=== PATIENT | male | born 1945 | race Caucasian/White ===

== ENCOUNTER → 2019-10-22 07:54 | Outpatient (CLI) | payer MEDICARE, OTHER, SELFPAY ==
[2016-10-08 12:51] VITALS: BMI 28.3
[2019-10-22 08:50] LABS: Absolute Lymphocyte Count 1.76 X10^3/uL (0.83-4.51); Absolute Neutrophil Count 6.1 X10^3/uL (2.0-7.7); Basophil# 0.03 X10^3/uL; Basophil% 0.3 % (0-1); Eosinophil# 0.12 X10^3/uL; Eosinophils% 1.4 % (0-5); Hematocrit 42.1 % (40-54); Hemoglobin 13.5 g/dL (13.0-16.5); Lymphocyte # 1.76 X10^3/ul (4.0); Lymphocyte % 19.8 % (19-41); Mean Corp Hgb Conc 32.1 g/dL (32-36); Mean Corpuscular Hgb 31.4 pg (27.0-32.0); Mean Corpuscular Volume 97.9 fL (80-94); Mean Platelet Vol. 9.2 fl (6.2-12.0); Monocyte# 0.79 X10^3/uL; Monocyte% 8.9 % (0-10); NRBC Flagged by Analyzer 0 % (0-5); Neutrophil # 6.14 X10^3/uL (2.7-7.7); Neutrophil % 69.1 % (47-70); Platelet Count 305 K/mm3 (150-450); RBC Distribution Width CV 12.3 % (11.6-14.6); RBC Distribution Width SD 44.1 fl (35.1-43.9); White Blood Count 8.9 K/mm3 (4.4-11.0)
[2019-10-22 09:00] LABS: Color, Urine Yellow (Yellow); Glucose, Dipstick Normal (Normal); Ketone-Dipstick Negative (Negative); Leukocyte Esterase-Dipstick Negative /ul (Negative); Nitrite-Dipstick Negative (Negative); Occult Blood-Urine Negative /ul (Negative); Protein-Dipstick Negative (Negative); Specific Gravity, Urine 1.015 (1.002-1.030); Urine Bilirubin Dipstick Negative (Negative); Urine Clarity Sl. Cloudy (Clear); Urine Urobilinogen Normal (Normal)
[2019-10-22 09:38] LABS: ALB/GLOB Ratio 0.9 RATIO (0.9-2.4); AST(SGOT) 27 U/L (15-37); Alanine Aminotransfer ALT/SGPT 45 U/L (16-61); Albumin, Serum 3.6 g/dL (3.2-5.0); Alkaline Phosphatase 149 U/L (45-117); Anion Gap 6 (5-15); BUN 13 mg/dL (7-18); BUN/Creat Ratio 15.6 RATIO (10-20); Calcium,Total 9.3 mg/dL (8.5-10.1); Chloride 106 mmol/L (98-107); Cholesterol 175 mg/dL (200); Creatinine, Serum 0.84 mg/dL (0.70-1.30); EST Glomerular Filtration Rate 96 mL/min (>60); Est Glom Filt Rate - Afr Amer 116 mL/min (>60); Glucose 106 mg/dL (74-106); High Density Lipoprotein 44 mg/dL; PSA,Total - Annual Screen 3.99 ng/mL (0.00-4.00); Potassium 4.3 mmol/L (3.5-5.1); Protein, Total 7.6 g/dL (6.4-8.2); Sodium Level 141 mmol/L (136-145); Thyroid Stim Hormone (TSH) 4.48 uIU/mL (0.358-3.74); Triglycerides 192 mg/dL; Very Low Density Lipoprotein 38 mg/dL (5-40)
--- OUTSIDE RECORDS SUMMARY | 2020-03-21 11:01 | XMS RPT_ITS | CCD ---
:1945 External Reference #:[id number] Author Organization [facility] Care Team Providers Name Role Phone EDGAR HERBERT Unavailable Unavailable NO REFERRING DR Unavailable Unavailable HOSPITALISTS Unavailable Unavailable Milind JJ Unavailable Unavailable Milind JJ Unavailable Unavailable OFUNGWU Unavailable Unavailable Milind JJ Unavailable Unavailable Allergies Reported Allergen Reaction(s) Severity Date of Onset Location codeine Translations: [ [facility]] System Reposito ry Problems Active Problems Category Problem Name Status Date Location Essential hypertension Essential (primary) Active 10-09-2016 - [facility] (67980) External Injury - Fall Other fall on same Active 10-09-2016 - [facility] level, initial Health System encounter (34682) Other ear and sense organ Unspecified hearing Active 10-10-19 17 - [facility] disorders loss, unspecified ear Health System (87747) Rheumatoid arthritis and Ankylosing spondylitis Active 2016 - [facility] related disease of unspecified sites Heal th System in spine (36461) Spondylosis; Spinal stenosis, Active 10-09-2016 - [facility] intervertebral disc cervical region [facility]alt [facility] disorders; other back (83666 ) problems Thyroid disorders Hypothyroidism, Active 10-09-2016 - [facility] unspecified [facility] (20546) Past or Other Problems Category Problem Name Status Date Location Other fractures Unspecified displaced Completed 10-09-2016 - [facility] fracture of [facility] System (00 000) cervical vertebra, initial encounter for closed fracture Encounters Date Type Reason Provider Location 10-09-2016 - Evaluation and Unspecified EDGAR HERBERT NO Facili ty:[facility] 10-11-2016 management of displaced fracture REFERRING DR ERICA CLARK [facility], initial BKareen Vaz encounter for PARVIZ MIRZA closed fracture OFUNGWU [facility] JJ Procedures Procedure Name Date Provider Location FUS 2/MORE CV JNT POST P 10-10-2016 PROVIDER UNKNOWN [facility] ([id number]) RELEASE CERVICAL NERVE O 10-10-2016 PROVIDER UNKNOWN [facility] ([id number]) Payers Payer Name Policy Number Location MEDICARE [id number] [facility] ([id number]) Summary Purpose Family History No Family History Records Found Advance Directives No Advanced Directives Records Found Additional Source Comments FOR RECORDS PERTAINING TO PATIENTS WHO ARE OR HAVE BEEN ENROLLED IN A CHEMICAL DEPENDENCY/SUBSTANCE ABUSE PROGRAM, SOME INFORMATION MAY BE OMITTED. This clinical summary was aggregated from multiple sources. Caution should be exercised in using it in the provision of clinical care. This summary normalizes information from multiple sources, and as a consequence, information in this document may materially changethe coding, format and clinical context of patient data. In addition, data may be omittedin some cases. CLINICAL DECISIONS SHOULD BE BASED ON THE PRIMARY CLINICAL RECORDS. [facility] provides no warranty or guarantee of the accuracy or completeness of information in this document. UNRECOGNIZED CONTENT PROVIDED BELOW FOR UNRECOGNIZED SECTION No Status Records Found UNRECOGNIZED CONTENT PROVIDED BELOW FOR UNRECOGNIZED SECTION INFORMATION SOURCE DATE CREATED AUTHOR AUTHOR'S ORGANIZATIO N 12/03/2017 [facility]
== END ==
PROVIDERS: PCP Family Medicine; Referring Provider Family Medicine; Visit Provider Family Medicine
DX: Z00.00 Encounter for general adult medical examination without abnormal findings (principal); Z12.5 Encounter for screening for malignant neoplasm of prostate; E03.9 Hypothyroidism, unspecified
CPT/HCPCS: 36415; 80053; 80061; 81002; 84153; 84443; 85025; G0103

== ENCOUNTER → 2020-05-20 09:03 | Outpatient (CLI) | payer MEDICARE, OTHER, SELFPAY ==
[2016-10-08 12:51] VITALS: BMI 28.3
[2020-05-20 09:42] LABS: Absolute Lymphocyte Count 2.14 X10^3/uL (0.83-4.51); Absolute Neutrophil Count 6.3 X10^3/uL (2.0-7.7); Basophil# 0.02 X10^3/uL; Basophil% 0.2 % (0-1); Eosinophil# 0.14 X10^3/uL; Eosinophils% 1.5 % (0-5); Hematocrit 40.4 % (40-54); Hemoglobin 12.9 g/dL (13.0-16.5); Lymphocyte # 2.14 X10^3/ul (4.0); Lymphocyte % 22.6 % (19-41); Mean Corp Hgb Conc 31.9 g/dL (32-36); Mean Corpuscular Hgb 30.8 pg (27.0-32.0); Mean Corpuscular Volume 96.4 fL (80-94); Mean Platelet Vol. 9.4 fl (6.2-12.0); Monocyte# 0.83 X10^3/uL; Monocyte% 8.8 % (0-10); NRBC Flagged by Analyzer 0 % (0-5); Neutrophil # 6.32 X10^3/uL (2.7-7.7); Neutrophil % 66.7 % (47-70); Platelet Count 290 K/mm3 (150-450); RBC Distribution Width CV 12.1 % (11.6-14.6); RBC Distribution Width SD 42.9 fl (35.1-43.9); Red Blood Count 4.19 M/mm3 (4.6-6.2); White Blood Count 9.5 K/mm3 (4.4-11.0)
[2020-05-20 10:15] LABS: AST(SGOT) 17 U/L (15-37); Alanine Aminotransfer ALT/SGPT 38 U/L (16-61); Albumin, Serum 3.6 g/dL (3.2-5.0); Alkaline Phosphatase 138 U/L (45-117); Anion Gap 2 (5-15); BUN 12 mg/dL (7-18); BUN/Creat Ratio 16.5 RATIO (10-20); Calcium,Total 8.6 mg/dL (8.5-10.1); Chloride 112 mmol/L (98-107); Cholesterol 102 mg/dL (200); Creatinine, Serum 0.73 mg/dL (0.70-1.30); EST Glomerular Filtration Rate 112 mL/min (>60); Est Glom Filt Rate - Afr Amer 136 mL/min (>60); Globulin 3.7 g/dL (2.2-4.2); Glucose 96 mg/dL (74-106); High Density Lipoprotein 45 mg/dL; Protein, Total 7.3 g/dL (6.4-8.2); Sodium Level 144 mmol/L (136-145); Thyroid Stim Hormone (TSH) 2.75 uIU/mL (0.358-3.74); Triglycerides 67 mg/dL; Very Low Density Lipoprotein 13 mg/dL (5-40)
== END ==
PROVIDERS: PCP Family Medicine; Visit Provider Family Medicine
DX: Z00.00 Encounter for general adult medical examination without abnormal findings (principal); I10 Essential (primary) hypertension; Z13.6 Encounter for screening for cardiovascular disorders; Z12.5 Encounter for screening for malignant neoplasm of prostate; E03.9 Hypothyroidism, unspecified
CPT/HCPCS: 36415; 80053; 80061; 84153; 84443; 85025; G0103

== ENCOUNTER 2022-12-27 11:56 | Emergency (ER) | payer MEDICARE, OTHER, SELFPAY ==
[2022-12-27] VITALS (17 sets, daily range): BP systolic 47–170; BP diastolic 32–64; PULSE 61–123; RESP 16–17; TEMP 35.2; O2SAT 74–94; BMI 29.9
[2022-12-27] MEDS: 0.9% Normal Saline 1,000 ML 999 ML IV (12:00)
--- NOTE | 2022-12-27 12:07 | CT_ITS ---
STUDY: CT BRAIN WITHOUT CONTRAST REASON FOR EXAM: Male, 77 years old. Trauma RADIATION DOSAGE (If Supplied By Facility): CTDIvol = ( 44.99 ) mGy, DLP = ( 880.47 ) mGycm TECHNIQUE: Transaxial CT imaging of the brain was performed without administration of intravenous contrast material. Individualized dose optimization techniques were used for this CT. COMPARISON: No relevant priors. FINDINGS: Normal soft tissue structures. Normal calvarium. There is mild cerebral atrophy with widening of the extra-axial spaces and ventricular dilatation. There are areas of decreased attenuation within the white matter tracts of the supratentorial brain, consistent with microvascular disease changes. Normal basal ganglia and thalami. Normal brainstem. Normal cerebellum. There is no intracranial hemorrhage. There are no findings of an acute ischemic infarction. Normal visualized paranasal sinuses. CT/Brain/Head without Contrast IMPRESSION: Chronic involutional changes of the brain. Electronically Signed: Jimmy Joe MD at 13:13 EDT ,
--- NOTE | 2022-12-27 12:08 | CT_ITS ---
STUDY: CT CHEST, ABDOMEN T PELVIS WITH CONTRAST 1. REASON FOR EXAM: Male, 77 years old. trauma -- TRAUMA ONLY: IV Contrast. Dont wait for creatinine RADIATION DOSAGE (If Supplied By Facility): CTDIvol = ( 24.30 ) mGy, DLP = ( 2335.49 ) mGycm TECHNIQUE: Transaxial imaging was performed following intravenous administration of IV 100mL Isovue-300. Individualized dose optimization techniques were used for this CT. COMPARISON: No relevant priors. FINDINGS: CHEST Endotracheal tube with the tip above the mimi. Alveolar densities in the posterior aspect of the upper lobes and the lower lobes worrisome for atelectasis or pulmonary contusion. Groundglass densities throughout the remainder of the lungs consistent with subsegmental atelectasis or ARDS. Tiny right pleural effusion. Moderate-sized left-sided pneumothorax. There is moderate cardiac enlargement. Enteric contrast within the left subclavian vein with air within smaller veins consistent with some air embolus. However, no significant air within the heart. This is likely of no significance. Normal mediastinum. Normal hilar regions. Normal unenhanced pulmonary arteries. Normal aorta arch and descending thoracic aorta. Acute hyperextension injury at T8/T9 with widening of the anterior aspect of the disc space but no retrolisthesis or retropulsion into the spinal canal. Flowing syndesmophytes throughout the thoracic spine suggestive of ankylosing spondylitis. Acute fractures the anterolateral left fifth and sixth ribs. Acute fractures of the anterior right first, second, third, lateral fourth, lateral fifth ribs. There is no demonstrated abnormality of the visualized upper abdomen. ABDOMEN The visualized lung bases are unremarkable. The visualized portions of the heart are within normal limits. Normal liver. Normal gallbladder and extrahepatic biliary system. Normal spleen. Normal pancreas. Normal bilateral adrenal glands. 6.5 cm cyst in the midsection of right kidney. 3 cm parapelvic cyst in the left kidney. Normal visualized stomach. Wall thickening of the terminal ileum with fibrofatty proliferation within the bowel wall possibly consistent with Crohn''s disease. However, no stranding of mesenteric fat to suggest inflammation. There are multiple colonic diverticula consistent with diverticulosis. The appendix is visualized and appears normal. Normal abdominal aorta. Normal inferior vena cava. Normal retroperitoneum. Normal abdominal wall. Normal osseous structures. PELVIS Pan catheter within the collapsed bladder. Normal visualized small intestine. Suture line in the sigmoid colon. There is no pelvic fluid. 4.0 x 4.5 cm mass of low soft tissue attenuation in the midline of the pelvis the level iliac crest of uncertain etiology another similar mass with calcification is seen in the midline just superior to the bladder. Normal visualized pelvic arteries. Normal abdominal wall. Normal osseous structures. CT/CT Chest, Abd, Pel w/Contrast IMPRESSION: 1. No acute traumatic aortic injury. 2. Endotracheal tube with the tip above the mimi. 3. Mixed groundglass and alveolar densities throughout both lungs likely consistent with a mixture of pulmonary contusions and subsegmental atelectasis. 4. Bilateral acute rib fractures with a tiny right-sided hemothorax and a moderate left pneumothorax. 5. Cardiomegaly. 6. No acute solid organ or bowel injury. 7. Unusual soft tissue masses in the pelvis of uncertain etiology. Correlation with PET CT scan may be useful. 8. Acute hyperextension injury at T8/T9 through the inferior endplate of T8 with widening of the anterior aspect of the disc space but no retrolisthesis or retropulsion into the spinal canal. Suspect underlying ankylosing spondylitis. N.B. : The above Results were Read Back by Jimmy Joe MD to Lindy Varghese MD, and understanding confirmed on 12/27/2022 13:50:22 (ET). Electronically Signed: Jimmy Joe MD at 13:51 EDT ,
--- NOTE | 2022-12-27 12:08 | CT_ITS ---
STUDY: CT CERVICAL SPINE WITHOUT CONTRAST REASON FOR EXAM: Male, 77 years old. Trauma RADIATION DOSAGE (If Supplied By Facility): CTDIvol = ( 27.66 ) mGy, DLP = ( 654.52 ) mGycm TECHNIQUE: High resolution transaxial imaging was performed without contrast material. Sagittal and coronal images were reconstructed. Individualized dose optimization techniques were used for this CT. COMPARISON: None FINDINGS: Normal craniovertebral junction. Normal anterior atlantoaxial articulation. Normal odontoid process. There is reversal of the normal cervical lordosis. Status post posterior fixation from C3 through C6 with slight reversal of the normal lordotic curvature. Mild loss of height and wedging deformity of the C5 vertebral body consistent with a chronic compression fracture. No retropulsion into the spinal canal. Flowing syndesmophytes and ankylosis of multiple joints throughout the cervical spine consistent with ankylosing spondylitis. Suspect acute hyperextension injury with a 10 mm posteriorly displaced fracture through the superior endplate of C3 with 10 mm retrolisthesis of C2 on C3 producing severe spinal stenosis with the posterior cortex of C2 nearly abutting (4 mm) the posterior elements of C3. C2-3: Acute extension injury with 10 mm retrolisthesis of C2 on C3 producing severe spinal stenosis and with a fracture through the superior endplate of C3 C3-4: Status post posterior fixation with anatomic alignment and no spinal stenosis or neural foraminal stenosis. C4-5: Status post posterior fixation with anatomic alignment no spinal stenosis or neural foraminal stenosis. C5-6: Status post posterior fixation with anatomic alignment and no spinal stenosis or neural foraminal stenosis. C6-7: Normal endplates. Normal disc height and morphology. Normal central canal and intervertebral neuroforamina. C7-T1: Normal endplates. Normal disc height and morphology. Normal central canal and intervertebral neuroforamina. Normal visualized soft tissue structures. CT/Spine Cervical without Contras IMPRESSION: Acute hyperextension injury at C2/C3 with fracture through the superior endplate of C3 and 10 mm a retrolisthesis of C2 on C3 producing severe (4 mm) spinal stenosis with probable severe cord injury on a background of probable ankylosing spondylitis. Prior posterior fixation from C3 through C6. Electronically Signed: Jimmy Joe MD at 13:24 EDT ,
--- NOTE | 2022-12-27 12:20 | RAD_ITS ---
STUDY: X-RAY CHEST REASON FOR EXAM: Male, 77 years old. TUBE PLACEMENT TECHNIQUE: Single AP portable view of the chest. COMPARISON: None. FINDINGS: Endotracheal tube with the tip approximately 5 cm above the mimi. Alveolar opacity throughout the left lung consistent with left upper lobe pneumonia. There is no demonstrated pleural abnormality. There is moderate cardiac enlargement. Normal mediastinum and irish. Normal visualized pulmonary arteries. Normal visualized aortic arch and descending thoracic aorta. Normal visualized thoracic spine. Normal visualized ribs, clavicles, and shoulders. There is no demonstrated abnormality of the visualized soft tissue structures of the upper abdomen. RAD/Chest 1 View (Portable) IMPRESSION: 1. Endotracheal tube with the tip above the mimi. 2. Left upper lobe pneumonia. 3. Cardiomegaly. Electronically Signed: Jimmy Joe MD at 12:37 EDT ,
[2022-12-27 12:29] LABS: Absolute Lymphocyte Count 5.21 X10^3/uL (0.83-4.51); Absolute Neutrophil Count 5.3 X10^3/uL (2.0-7.7); Basophil# 0.08 X10^3/uL; Basophil% 0.7 % (0-1); Eosinophil# 0.09 X10^3/uL; Eosinophils% 0.7 % (0-5); Hematocrit 43.5 % (40-54); Lymphocyte # 5.21 X10^3/ul (0.83-4.51); Lymphocyte % 42.5 % (19-41); Mean Corp Hgb Conc 29.9 g/dL (32-36); Mean Corpuscular Hgb 31.4 pg (27.0-32.0); Mean Corpuscular Volume 105.1 fL (80-94); Mean Platelet Vol. 9.9 fl (6.2-12.0); Monocyte# 1.01 X10^3/uL; Monocyte% 8.2 % (0-10); NRBC Flagged by Analyzer 0.5 % (0-5); Neutrophil # 5.29 X10^3/uL (2.7-7.7); Neutrophil % 43.2 % (47-70); POSITIVE DIFFERENTIAL YES; Platelet Count 135 K/mm3 (150-450); RBC Distribution Width SD 46.9 fl (35.1-43.9); Red Blood Count 4.14 M/mm3 (4.6-6.2); White Blood Count 12.3 K/mm3 (4.4-11.0)
[2022-12-27 12:30] LABS: Differential Indicated SCAN CRITERIA MET
[2022-12-27 12:48] LABS: Anion Gap 12 (5-15); BUN 13 mg/dL (7-18); BUN/Creat Ratio 11.2 RATIO (10-20); Calcium,Total 8.2 mg/dL (8.5-10.1); Chloride 108 mmol/L (98-107); Creatinine, Serum 1.16 mg/dL (0.70-1.30); EST Glomerular Filtration Rate 65 mL/min (>60); Est Glom Filt Rate - Afr Amer 79 mL/min (>60); Estimated Creatinine Clearance 55.02 ml/min; Glucose 296 mg/dL (74-106); Potassium 3.6 mmol/L (3.5-5.1); Sodium Level 141 mmol/L (136-145); Troponin-I HS 1234 pg/mL (3.0-78.0)
[2022-12-27 12:53] LABS: Reactive Lymphocyte 1+
[2022-12-27 13:02] LABS: Alcohol, Blood (Medical)-Serum < 3.0 mg/dL
--- NOTE | 2022-12-27 13:02 | CM.ED ---
Social Work SW attempted to contact patient's , however, phone goes directly to voicecoil. SW contacted [facility] to inquire if an officer can attempt to contact patient's at their home. provided demographic information; [facility] to contact if they are unable to locate her. Beatrice OLIVER, SAKSHI
--- NOTE | 2022-12-27 13:05 | ED.RN ---
Dispatch states they are sending an officer to the pt. home to notify family
--- NOTE | 2022-12-27 14:58 | CHAPLAIN ---
Type of Pastoral Visit ___ Initial Visit ___ Follow-up Visit ___ On-call Visit ___ General Patient Visit ___ Spiritual Assessment ___ Family Conference ___ Bereavement ___ Rapid Response _x__ Code Blue ___ Other (describe below) Pastoral Care Referral From ___ Patient ___ Family ___ Nurse ___ Physician _x__ City Magistrate ___ Packing Machine Pilot Can Router _x__ Other (describe below) Sacrament/Intervention _x__ Active listening ___ Anointing ___ Restorationism _x__ Bereavement ___ Communion _x__ Berta exploration ___ _x__ Life review _x__ Prayer ___ Reconciliation ___ Sacrament of Sick _x__ Supportive presence ___ Wedding ___ Other (describe below) Pastoral Comments responded to code blue in ED; at the beginning no family members were present; offered silent prayers for the patient; was later called by SW notifying this board mill supervisor that family members had arrived; met with spouse at first and then with several children, step children, and grandchildren; offered presence, prayer, and calming words as each family member arrived; pt had been intubated and family has decided to extubate after all members of family have arrived; hand sizer of the patient and spouse came at this time as well to offer spiritual care; after conferring with their hand sizer, gave care of the family to their hand sizer at this time
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
[2022-12-27] MEDS: HYDROmorphone 1 MG/ML Syringe IV (15:23)
--- NOTE | 2022-12-27 15:29 | ED.RN ---
PT MEDICATED WITH DILAUDID AND TERMINALLY EXTUBATED BY RESPIRATORY THERAPY. FAMILY WITH PATIENT AT BEDSIDE. THIS RN COMFORTS PT AND ASKS IF FAMILY HAS ANY QUESTIONS OR CONCERNS AT THIS TIME.
--- NOTE | 2022-12-27 15:55 | CM.ED ---
Social Work SW continued to provide emotional support to family members as they arrived. SW also discussed and provided grief resources. Family receptive and have no other needs at this time. Beatrice Rocha MSW, SAKSHI
== END 2022-12-27 18:27 ==
PROVIDERS: Emergency Provider Student in an Organized Health Care Education/Training Program; PCP Family Medicine; Visit Provider Student in an Organized Health Care Education/Training Program
DX: I46.9 Cardiac arrest, cause unspecified (principal); S12.200A Unspecified displaced fracture of third cervical vertebra, initial encounter for closed fracture; S12.101A Unspecified nondisplaced fracture of second cervical vertebra, initial encounter for closed fracture; S22.069A Unspecified fracture of T7-T8 vertebra, initial encounter for closed fracture; S22.079A Unspecified fracture of T9-T10 vertebra, initial encounter for closed fracture; I21.4 Non-ST elevation (NSTEMI) myocardial infarction; S27.2XXA Traumatic hemopneumothorax, initial encounter; J93.9 Pneumothorax, unspecified; V43.52XA Car driver injured in collision with other type car in traffic accident, initial encounter; W22.10XA Striking against or struck by unspecified automobile airbag, initial encounter; Y92.410 Unspecified street and highway as the place of occurrence of the external cause
CPT/HCPCS: 31500; 31720; 70450; 71045; 71260; 72125; 74177; 80048; 82077; 84484; 85025; 92950; 93005; 94002; 96361; 96374; 99283; J7030; Q9967; A4216